=== PATIENT | male | born 1945 | race Caucasian/White ===

== ENCOUNTER 2016-11-30 17:53 | Emergency (ER) | payer OTHER ==
[~2016-11-30] VITALS: Ht 175.3 cm; Wt 104.3 kg
[2016-11-30 18:37] LABS: ABSOLUTE BASOPHIL COUNT 0 /CUMM (0.0-0.2); ABSOLUTE EOSINOPHIL COUNT 0.1 /CUMM (0.0-0.7); ABSOLUTE GRANULOCYTE CT 9.8 /CUMM (1.4-6.5); ABSOLUTE LYMPH COUNT 1.4 /CUMM (1.2-3.4); ABSOLUTE MONOCYTE COUNT 0.3 /CUMM (0.10-0.60); BASOPHIL % 0.3 % (0.0-2.0); EOSINOPHIL % 0.5 % (0-5); GRANULOCYTE % 84.7 % (42.2-75.2); HEMATOCRIT 52.9 % (42-52); MEAN CORPUSCULAR HGB 29.1 PG (27.0-31.0); MEAN CORPUSCULAR HGB CONC 33.1 G/DL (33.0-37.0); MEAN CORPUSCULAR VOLUME 87.7 FL (80.0-94.0); MEAN PLATELET VOLUME 8.8 FL (7.4-10.4); PLATELET COUNT 175 /CUMM (130-400); RBC DISTRIBUTION WIDTH 14.3 % (11.5-14.5); RED BLOOD CELL CT 6.03 /CUMM (4.70-6.10); WHITE BLOOD CELL COUNT 11.5 /CUMM (4.8-10.8)
[2016-11-30] MEDS ORDERED: POTASSIUM CITR10 ME1 PO (21:14)
[2016-11-30] MEDS ORDERED: HYDROCHLOROTH12.5 M3 PO (21:14)
[2016-11-30] MEDS ORDERED: TAMSULOSIN HCL0.4 M1 PO (21:14)
--- NOTE | 2016-11-30 21:15 | CT SCAN REPORT ---
EXAMINATION: CT ABDOMEN AND PELVIS WITH CONTRAST CLINICAL INFORMATION: Colitis versus gastroenteritis COMPARISON: None TECHNIQUE: Multidetector volumetric imaging was performed of the abdomen and pelvis after the IV administration of 95 mL of Optiray 320 intravenous contrast. Sagittal and coronal reformatted images were obtained on the technologist's workstation. DLP: 790.53 mGy-cm FINDINGS: LUNG BASES: Thin-walled 2 cm lung cyst at the medial right lung base. Lung bases are clear. No pleural effusion. LIVER, GALLBLADDER, AND BILIARY TREE: There are 2 small 4 mm hypodensities in the left lobe liver too small to characterize. Statistically likely small hepatic cyst. No suspicious liver lesion. No intrahepatic bile duct dilatation. Multiple calcified gallstones within the gallbladder. Largest gallstone measures 1.7 cm. No edema around the gallbladder. No bile duct dilatation. Extra hepatic CBD measures 4 mm. PANCREAS: Unremarkable. SPLEEN: Unremarkable. ADRENAL GLANDS: Unremarkable. KIDNEYS AND URETERS: Right kidney: Cortical cyst upper pole of right kidney measures 6.4 cm. Additional smaller cortical cysts in the kidney. There is an ovoid calcification at the upper pole of the right kidney that is difficult to determine whether is within the cyst or adjacent to the cyst. This measures 1.4 x 0.7 cm. Density measurement of 710 Hounsfield units. There is a 1 mm stone at the lower pole of the right kidney. No hydronephrosis. No ureteral stone. Left kidney diffuse cortical thinning of left kidney. No left renal stone and no hydronephrosis. There is an extrarenal pelvis present. There are several small cysts in the left kidney. BLADDER: There is an 8 x 5 mm stone layering dependently in the bladder. No bladder wall thickening. The prostate is enlarged and impresses into the bladder base. GASTROINTESTINAL TRACT: The small and large bowel are unremarkable. The appendix is unremarkable. ABDOMINAL WALL: Small bilateral fat-containing inguinal hernias. LYMPH NODES: Normal. VASCULAR: Atherosclerotic vascular wall calcifications of aorta and iliac vessels without aneurysm. PELVIC VISCERA: Prostate is enlarged. Impresses into the bladder base. Prostate measures 6.3 x 5 x 5 cm. There are calcifications within the prostate. OSSEOUS STRUCTURES: Multilevel degenerative change of the spine with bridging osteophytes of lower thoracic spine. Degenerative facet joint arthrosis most significant at lower lumbar spine. IMPRESSION: 1. Large cyst at the upper pole the right kidney. This is associated with a calcification which could be within the dependent cyst or an adjacent calyx in the upper pole of the right kidney. This stone measures 1.4 x 0.7 cm. Tiny stone at the lower pole right kidney as well. 2. Cortical thinning of left kidney. Multiple small cysts in the left kidney. 3. Enlarged lobular prostate impressing into the bladder base. 4. 8 x 5 mm stone layering dependently within the bladder. No acute change of bladder wall. 5. Cholelithiasis. No bile duct dilatation. No edema around the gallbladder. 6. No acute change of the bowel.
[2016-11-30 21:26] VITALS: BP 180/60
--- NOTE | 2016-11-30 21:28 | ED GI/GU/ABDOMINAL COMPLAINT ---
History of Present Illness General Chief Complaint: Abdominal Pain/Flank Pain Stated Complaint: ABD/EPIGASTRIC PAIN, X 6 HRS Source: patient, family Exam Limitations: no limitations Vital Signs & Intake/Output Vital Signs & Intake/Output Vital Signs Date Time Temp Pulse Resp B/P Pulse O2 O2 Flow FiO2 Ox Delivery Rate 11/30 2125 97.5 72 18 180/60 95 11/30 2053 Room Air 11/30 1931 64 18 236/108 96 11/30 1810 97.9 59 20 205/98 97 Room Air Room Air Allergies Coded Allergies: No Known Allergies (11/30/16) Reconcile Medications Hydrochlorothiazide 12.5 MG CAPSULE 1 CAP PO BID BP (Reported) Potassium Citrate (Potassium Citrate ER) 10 MEQ (1,080 MG) TABLET.ER 1 TAB PO BID SUPPLEMENT (Reported) Tamsulosin HCl 0.4 MG CAP.ER.24H 1 CAP PO DAILY PROSTATE (Reported) Triage Note: PT TO ED WITH C/O UPPER ABD PAIN X 1 DAY, DRY HEAVES AT HOME. Triage Nurses Notes Reviewed? yes HPI: Mr. Mcgill is a 71 yo m w/ PMH of HTN and kidney stones sent into the emergency department for abdominal pain. Patient states the pain started about 1 PM today and gradually worsened throughout the day. He describes the pain as a deep stabbing pain as well as a burning sensation in the epigastric area. states she gave him some TUMS at home and it did not improve his symptoms. Patient had ongoing dry heaving. He denies fever or chills or diarrhea. Patient states he does not have a history of GERD. No chronic NSAID use. No rectal bleeding. (KYAW BOWMAN MD) Past History Travel History Traveled to [place] past 21 day No Medical History Any Pertinent Medical History? 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 No (KYAW BOWMAN MD) Review of Systems Review of Systems Constitutional: Reports: see HPI. EENTM: Reports: no symptoms. Respiratory: Reports: no symptoms. Cardiovascular: Reports: no symptoms. GI: Reports: abdominal pain, nausea, vomiting. Denies: bloody stool. Genitourinary: Reports: no symptoms. Musculoskeletal: Reports: no symptoms. Skin: Reports: no symptoms. Neurological/Psychological: Reports: no symptoms. Hematologic/Endocrine: Reports: no symptoms. Immunologic/Allergic: Reports: no symptoms. All Other Systems: Reviewed and Negative (KYAW BOWMAN MD) Physical Exam Physical Exam General Appearance: well developed/nourished, no apparent distress, alert, awake Head: atraumatic, normal appearance Eyes: Bilateral: normal appearance, PERRL, EOMI. Ears, Nose, Throat, Mouth: hearing grossly normal Neck: normal inspection, supple, full range of motion Respiratory: normal breath sounds, chest non-tender, no respiratory distress Cardiovascular: regular rate/rhythm Gastrointestinal: normal bowel sounds, soft, guarding, epigastric tenderness Rectal: normal rectal tone, heme negative stool Back: normal inspection, normal range of motion Extremities: normal range of motion Neurologic/Psych: no motor/sensory deficits, awake, alert, oriented x 3, normal gait, normal mood/affect Skin: intact, normal color, warm/dry Core Measures ACS in differential dx? No Severe Sepsis Present: No Septic Shock Present: No (KYAW BOWMAN MD) Progress Differential Diagnosis: biliary colic, bowel obstruction, cholecystitis, diverticulitis, gastritis, ischemic bowel, pancreatitis, peptic ulcer, PUD/GERD, perforated viscous Plan of Care: Orders Procedure Date/time Status URINALYSIS 12/01 1811 Complete TROPONIN LEVEL 12/01 1811 Complete LIPASE 12/01 1811 Complete COMPREHENSIVE METABOLIC PANEL 12/01 1811 Complete CBC WITHOUT DIFFERENTIAL 12/01 1811 Complete AMYLASE 12/01 1811 Complete EKG 11/30 175 Active Current Medications Sig/Conrad Start time Last Medication Dose Stop Time Status Admin Al Hydroxide/Mg 30 ML ONCE ONE 12/01 1999 CAN Hydroxide 11/30 2000 (Maalox Plus) Lidocaine 15 ML ONCE ONE 12/01 1999 CAN (Xylocaine Viscous) 11/30 2000 Laboratory Tests 11/30/16 1822: Urine Color YEL, Urine Clarity CLEAR, Urine pH 7.0, Ur Specific [place] 1.020, Urine Protein TRACE H, Urine Ketones NEG, Urine Nitrite NEG, Urine Bilirubin NEG, Urine Urobilinogen 0.2, Ur Leukocyte Esterase NEG, Ur Microscopic SEDIMENT EXAMINED, Urine RBC 1-3, Urine WBC 5-10 H, Ur Epithelial Cells RARE, Urine Bacteria RARE H, Urine Hemoglobin TRACE-LYSED H, Urine Glucose NEG 11/30/169: Anion Gap 11, Estimated GFR 46 L, BUN/Creatinine Ratio 12.7, Glucose 134 H, Calcium 9.2, Total Bilirubin 0.8, AST 24, ALT 32, Alkaline Phosphatase 99, Troponin I < 0.01, Total Protein 7.4, Albumin 4.0, Globulin 3.4, Albumin/ Globulin Ratio 1.2, Amylase 89, Lipase 120, CBC w Diff NO MAN DIFF REQ, RBC 6.03 , MCV 87.7, MCH 29.1, RDW 14.3, MPV 8.8, Gran % 84.7 H, Lymphocytes % 12.0 L, Monocytes % 2.5, Eosinophils % 0.5, Basophils % 0.3, Absolute Granulocytes 9.8 H, Absolute Lymphocytes 1.4, Absolute Monocytes 0.3, Absolute Eosinophils 0.1, Absolute Basophils 0, PUBS MCHC 33.1 Patient is 71-year-old male with past medical history of hypertension. He is quite hypertensive today in the emergency department. He states he was unable to take his antihypertensive meds as he was in significant pain and retching. Patient's blood work was ordered from triage and he does have a mild leukocytosis. Crit is otherwise stable. Patient looks clinically dehydrated with a mildly elevated BUN. Lipase negative so unlikely pancreatitis. Clinically the patient had peptic ulcer disease or GERD that he is tender only in the epigastric region. Will get a GI cocktail as well as famotidine to improve symptoms. Patient also given a liter of fluids. CT is ordered given how exquisitely tender he is in the epigastric region. Will rule out other etiologies such as possible cholecystitis or diverticulitis. However it is unlikely as the patient has been afebrile here. Patient also has no history of surgeries to increase his risk of a possible bowel obstruction. He is able to have bowel movements without issues today. Patient's stool was guaiac negative on exam and was brown. After medications, patient states his pain decreased from a 10/10 to 5/10. He is tolerating by mouth liquids without issues. We'll discharge home for follow- up with PMD and recommendation to take an acid maritime pilot. (KYAW BOWMAN MD) Diagnostic Imaging: Viewed by Me: CT Scan. Discussed w/RAD: CT Scan. Radiology Impression: 1. Large cyst at the upper pole the right kidney. This is associated with a calcification which could be within the dependent cyst or an adjacent calyx in the upper pole of the right kidney. This stone measures 1.4 x 0.7 cm. Tiny stone at the lower pole right kidney as well. 2. Cortical thinning of left kidney. Multiple small cysts in the left kidney. 3. Enlarged lobular prostate impressing into the bladder base. 4. 8 x 5 mm stone layering dependently within the bladder. No acute change of bladder wall. 5. Cholelithiasis. No bile duct dilatation. No edema around the gallbladder. 6. No acute change of the bowel. Initial ED EKG: none (KYAW BOWMAN MD) Departure Departure Time of Disposition: 2120 Disposition: HOME OR SELF CARE Condition: Stable Clinical Impression Primary Impression: GERD (gastroesophageal reflux disease) Qualifiers: Esophagitis presence: esophagitis presence not specified Qualified Code: K21.9 - Gastro-esophageal reflux disease without esophagitis Referrals: BRENNEN CRUZ,FELIZ Barnhart (PCP/Family) Additional Instructions: Please follow up with your primary care doctor as needed. I would encourage you to eat bland foods for the next 2 or 3 days until this completely resolves. He continues an [id number] medication for reflux such as ranitidine or omeprazole. Also recommend use Maalox, your stomach and help improve the pain. If you are unable to keep down food, develop fever/chills, or any other concerning symptoms, please return to the emergency department for further evaluation. Departure Forms: Customer Survey General Discharge Information (KYAW BOWMAN MD) PA/POCKET ASSEMBLER Co-Sign Statement Statement: ED Attending supervision documentation- [] I saw and evaluated the patient. I have also reviewed all the pertinent lab results and diagnostic results. I agree with the findings and the plan of care as documented in the PA's/POCKET ASSEMBLER's documentation. [x] I have reviewed the ED Record and agree with the PA's/POCKET ASSEMBLER's documentation. [] Additions or exceptions (if any) to the PAs/POCKET ASSEMBLER's note and plan are summarized below: [] (BACILIO AVALOS DO
== END 2016-11-30 21:33 ==
LOC: ERH 17:53
PROVIDERS: Emergency Medicine
DX: K21.9 Gastro-esophageal reflux disease without esophagitis (principal)
CPT/HCPCS: 74177; 81001; 93005; 93010; 96374

== ENCOUNTER 2018-04-10 13:16 | Emergency (ER) | payer OTHER ==
[~2018-04-10] VITALS: Ht 175.3 cm; Wt 104.3 kg
[~2018-04-10 13:16] MED LIST: HYDROCHLOROTH12.5 M3 PO; POTASSIUM CITR10 ME1 PO; TAMSULOSIN HCL0.4 M1 PO
--- NOTE | 2018-04-10 13:24 | ED GENERAL ADULT ---
History of Present Illness General Chief Complaint: General Adult Stated Complaint: PT IS HERE FOR VOMITING BLOOD ALL AM Source: patient Exam Limitations: no limitations Vital Signs & Intake/Output Vital Signs & Intake/Output Vital Signs Date Time Temp Pulse Resp B/P B/P Pulse O2 O2 Flow FiO2 Mean Ox Delivery Rate 04/10 1634 97.3 72 18 160/84 99 Room Air 04/10 1446 88 196/94 04/10 1428 96 Room Air 04/10 1420 80 153/84 04/10 1323 98.4 84 20 190/108 99 Room Air Allergies Coded Allergies: No Known Allergies (11/30/16) Reconcile Medications Hydrochlorothiazide 12.5 MG CAPSULE 1 CAP PO BID BP (Reported) Potassium Citrate (Potassium Citrate ER) 10 MEQ (1,080 MG) TABLET.ER 1 TAB PO BID SUPPLEMENT (Reported) Tamsulosin HCl 0.4 MG CAP.ER.24H 1 CAP PO DAILY PROSTATE (Reported) Triage Note: C/O "SPITTING UP BLO0D" SINEC YESTERDAY. DENIES CHEST PAIN OR SOB. Triage Nurses Notes Reviewed? yes Onset: Gradual Duration: day(s): Timing: recent history Injury Environment: home Severity: moderate HPI: 73YO MALE with hx of HTN, daily tobacco use presents to ED complaining of coughing up blood beginning yesterday. Patient states he coughs intermittently d /t his smoking history however yesterday cough became protuctive of blood and hemoptysis and persisted today. Patient reports each episode is about a tbsp of blood. Patient denies other symptoms. No chest pain, dyspnea, malaise, fevers, chills, abdominal pain. (Yvrose Stinson) Past History Travel History Traveled to [place] past 21 day No Medical History Any Pertinent Medical History? 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 No (Yvrose Stinson) Review of Systems Review of Systems Constitutional: Reports: no symptoms. EENTM: Reports: no symptoms. Respiratory: Reports: see HPI. Cardiovascular: Reports: no symptoms. GI: Reports: no symptoms. Genitourinary: Reports: no symptoms. Musculoskeletal: Reports: no symptoms. Skin: Reports: no symptoms. Neurological/Psychological: Reports: no symptoms. Hematologic/Endocrine: Reports: no symptoms. Immunologic/Allergic: Reports: no symptoms. All Other Systems: Reviewed and Negative (Sylvia VICENTE,Yvrose Baron) Physical Exam Physical Exam General Appearance: well developed/nourished, no apparent distress, alert, awake Head: atraumatic, normal appearance Eyes: Bilateral: normal appearance. Ears, Nose, Throat: hearing grossly normal Neck: normal inspection, supple, full range of motion Respiratory: normal breath sounds, no respiratory distress, lungs clear Cardiovascular: regular rate/rhythm Gastrointestinal: normal bowel sounds, soft, non-tender, no organomegaly Back: normal inspection, normal range of motion Extremities: normal inspection, no edema, no calf tenderness Neurologic/Psych: awake, alert, oriented x 3 Skin: intact, normal color, warm/dry Core Measures ACS in differential dx? No CVA/TIA Diagnosis: No Sepsis Present: No Sepsis Focused Exam Completed? No (Yvrose Stinson) Progress Differential Diagnoses I considered the following diagnoses in my evaluation of the patient: [PE, PNA, tobacco use, essential hypertension] Plan of Care: Orders Procedure Date/time Status TROPONIN LEVEL 04/10 1321 Complete PARTIAL THROMBOPLASTIN TIME 04/10 1321 Complete PROTHROMBIN TIME 04/10 1321 Complete D-DIMER 04/10 1321 Complete COMPREHENSIVE METABOLIC PANEL 04/10 1321 Complete CBC WITHOUT DIFFERENTIAL 04/10 1321 Complete EKG 04/10 1321 Active Laboratory Tests 04/10/18 1335: Anion Gap 7, Estimated GFR 43 L, BUN/Creatinine Ratio 17.5, Glucose 135 H, Calcium 8.9, Total Bilirubin 1.1, AST 23, ALT 28, Alkaline Phosphatase 83, Troponin I 0.02, Total Protein 7.2, Albumin 4.0, Globulin 3.2, Albumin/Globulin Ratio 1.3, PT 10.8, INR 0.99, APTT 31, D-Dimer High Sensitivty < 200, CBC w Diff NO MAN DIFF REQ, RBC 5.96, MCV 89.4, MCH 29.7, MCHC 33.2, RDW 14.7 H, MPV 8.8, Gran % 65.5, Lymphocytes % 26.6, Monocytes % 4.4, Eosinophils % 3.2, Basophils % 0.3, Absolute Granulocytes 5.2, Absolute Lymphocytes 2.1, Absolute Monocytes 0.3 , Absolute Eosinophils 0.3, Absolute Basophils [address] Dugan who was present in the ED regarding his patient. He recommends CTA chest for eval of PE. Given patient's elevated creatinine (at baseline for him) he cannot have CTA. We'll obtain a VQ scan to further rule out PE. VQ scan is negative, very low likelihood for PE in this patient. D-dimer is negative. Patient has stable EKG without acute ischemic changes. Troponin enzyme negative. He has no chest pain or dyspnea, no hypoxia. He did acted on chest x-ray. Patient is ready to go home at this time. He has follow-up with Dr. Dugan next week. Strict return precautions given. Strict return precautions given which Patient understands and agrees with. The patient agrees with the plan of care. Dr. Zepeda agrees with this plan. Diagnostic Imaging: Viewed by Me: Radiology Read, Nuclear Medicine. Discussed w/RAD: Radiology Read , Nuclear Medicine. Radiology Impression: PATIENT: LOPEZ PERRY PRESENT AGE: 73 PATIENT ACCOUNT NO: [id number] : 45 LOCATION: [facility] ORDERING PHYSICIAN: Yvroes VICENTE SERVICE DATE: 04/10/18 EXAM TYPE: NUC - LUNG SCAN (V/Q) EXAMINATION: PULMONARY VENTILATION PERFUSION STUDY CLINICAL INFORMATION: Hemoptysis. Assess for PE. COMPARISON: Chest x-ray 2017. TECHNIQUE: Serial gamma scintillation camera images were obtained over the posterior chest during the single breath, equilibrium rebreathing and washout of 8.1 mCi Xe 133 gas. The patient then received 4.5 mCi Tc-99m MAA intravenously and a 6-view perfusion study was performed. FINDINGS: Ventilation images: On the single breath and equilibrium images there is homogeneous distribution of gas bilaterally. There is moderate retention at the left base. Perfusion images: No segmental perfusion defects are present. There is homogeneous distribution of activity bilaterally. There are no focal anatomic appearing perfusion defects present. IMPRESSION: 1. Very low probability ventilation perfusion scan for pulmonary embolus. VTE: Negative. DICTATED BY: Marc Michele MD DATE/TIME DICTATED:08/22/18 / 1627 FIRE DISPATCHER:JULIO C DATE/TIME TRANSCRIBED:1626 CONFIDENTIAL, DO NOT COPY WITHOUT APPROPRIATE AUTHORIZATION. < Electronically signed in Other Vendor System> SIGNED BY: Marc Michele MD 1632 CXR Impression: PATIENT: LOPEZ PERRY PRESENT AGE : 73 PATIENT ACCOUNT NO: [id number] : 45 LOCATION: [facility] ORDERING PHYSICIAN: Yvrose VICENTE SERVICE DATE: 04/10/18 EXAM TYPE: RAD - XRY-CHEST XRAY, TWO VIEWS EXAMINATION: XR CHEST CLINICAL INFORMATION: Coughing up blood. Assess for pneumonia, congestion or effusion. COMPARISON: Chest x-ray 03/30/2015. TECHNIQUE: PA and lateral views of the chest were obtained. FINDINGS : The lung chavez are well expanded and appear clear bilaterally. The cardiac silhouette is normal. There are no pleural effusions or pneumothorax. The central pulmonary vasculature is normal. The hilar regions appear normal. There are mild multilevel degenerative changes in the thoracic spine. There are no acute osseous findings. IMPRESSION: 1. There are no acute cardiopulmonary findings. DICTATED BY: Marc Michele MD DATE/TIME DICTATED:04/10/181404 FIRE DISPATCHER:JULIO C DATE/TIME TRANSCRIBED:04/10/181404 CONFIDENTIAL, DO NOT COPY WITHOUT APPROPRIATE AUTHORIZATION. <Electronically signed in Other Vendor System> SIGNED BY: Marc Michele MD 04/10/18 1410 Initial ED EKG: sinus rhythm @69bpm, PVCs, nonspecific ST changes Prior EKG: unchanged (11/30/16) (Sylvia VICENTE,Yvrose Baron) Departure Departure Disposition: HOME OR SELF CARE Condition: Stable Clinical Impression Primary Impression: Hemoptysis Referrals: Hermes Dugan MD (PCP/Family) Additional Instructions: Follow up with Dr. Dugan as scheduled. Return with worsening symptoms or concerns including chest pain, shortness of breath, increase in amount of blood coughed up, or abdominal pain. Please note that there might be incidental findings in your evaluation that are unrelated to the current emergency department visit. Please notify your primary care doctor about this emergency department visit in order to obtain and review all of the testing performed so that these incidental findings can be monitored as needed. If you had an x-ray performed, please understand that some fractures may not be seen on the initial set of x-rays. If your symptoms persist you might need a repeat set of x-rays to check for such a fracture. If you had a laceration evaluated, please understand that foreign bodies such as glass or wood may not be visible to the naked eye or on plain x-rays. If the wound becomes red, swollen, increasingly more painful or if there is any drainage from the wound, please have it reevaluated by a physician for the possibility of a retained foreign body. If you're unable to follow up as outlined in the discharge instructions please return to the emergency department. Thank you for choosing the [facility] Emergency Department for your care. It was a pleasure to serve you today. Departure Forms: Customer Survey General Discharge Information (Yvrose Stinson) PA/ROLLER SKATES ASSEMBLER Co-Sign Statement Statement: ED Attending supervision documentation- [X] I saw and evaluated the patient. I have also reviewed all the pertinent lab results and diagnostic results. I agree with the findings and the plan of care as documented in the PA's/ROLLER SKATES ASSEMBLER's documentation. [X] I have reviewed the ED Record and agree with the PA's/ROLLER SKATES ASSEMBLER's documentation. [] Additions or exceptions (if any) to the PAs/ROLLER SKATES ASSEMBLER's note and plan are summarized below: [] (Duane CRUZ,Abundio Roblero) Critical Care Note Critical Care Note Critical Care Time: non-applicable (Yvrose Stinson)
[2018-04-10 13:45] LABS: ABSOLUTE BASOPHIL COUNT 0 /CUMM (0.0-0.2); ABSOLUTE EOSINOPHIL COUNT 0.3 /CUMM (0.0-0.7); ABSOLUTE GRANULOCYTE CT 5.2 /CUMM (1.4-6.5); ABSOLUTE LYMPH COUNT 2.1 /CUMM (1.2-3.4); ABSOLUTE MONOCYTE COUNT 0.3 /CUMM (0.10-0.60); BASOPHIL % 0.3 % (0.0-2.0); EOSINOPHIL % 3.2 % (0-5); GRANULOCYTE % 65.5 % (42.2-75.2); HEMATOCRIT 53.3 % (42-52); MEAN CORPUSCULAR HGB 29.7 PG (27.0-31.0); MEAN CORPUSCULAR HGB CONC 33.2 G/DL (33.0-37.0); MEAN CORPUSCULAR VOLUME 89.4 FL (80.0-94.0); MEAN PLATELET VOLUME 8.8 FL (7.4-10.4); PLATELET COUNT 200 /CUMM (130-400); RBC DISTRIBUTION WIDTH 14.7 % (11.5-14.5); RED BLOOD CELL CT 5.96 /CUMM (4.70-6.10); WHITE BLOOD CELL COUNT 7.9 /CUMM (4.8-10.8)
[2018-04-10 14:03] LABS: PT 10.8 SEC (9.4-12.5); PTT 31 SEC (25-37)
--- NOTE | 2018-04-10 14:10 | RADIOLOGY REPORT ---
EXAMINATION: XR CHEST CLINICAL INFORMATION: Coughing up blood. Assess for pneumonia, congestion or effusion. COMPARISON: Chest x-ray 03/30/2015. TECHNIQUE: PA and lateral views of the chest were obtained. FINDINGS: The lung chavez are well expanded and appear clear bilaterally. The cardiac silhouette is normal. There are no pleural effusions or pneumothorax. The central pulmonary vasculature is normal. The hilar regions appear normal. There are mild multilevel degenerative changes in the thoracic spine. There are no acute osseous findings. IMPRESSION: 1. There are no acute cardiopulmonary findings.
--- NOTE | 2018-04-10 16:32 | NUCLEAR MEDICINE REPORT ---
EXAMINATION: PULMONARY VENTILATION PERFUSION STUDY CLINICAL INFORMATION: Hemoptysis. Assess for PE. COMPARISON: Chest x-ray 04/10/2018. TECHNIQUE: Serial gamma scintillation camera images were obtained over the posterior chest during the single breath, equilibrium rebreathing and washout of 8.1 mCi Xe 133 gas. The patient then received 4.5 mCi Tc-99m MAA intravenously and a 6-view perfusion study was performed. FINDINGS: Ventilation images: On the single breath and equilibrium images there is homogeneous distribution of gas bilaterally. There is moderate retention at the left base. Perfusion images: No segmental perfusion defects are present. There is homogeneous distribution of activity bilaterally. There are no focal anatomic appearing perfusion defects present. IMPRESSION: 1. Very low probability ventilation perfusion scan for pulmonary embolus. VTE: Negative.
[2018-04-10 16:34] VITALS: BP 160/84
== END 2018-04-10 17:01 ==
LOC: ERH 13:16
PROVIDERS: Physician Assistant
DX: R04.2 Hemoptysis (principal)
CPT/HCPCS: 71046; 78582; 93005; 93010; A9540; A9558